=== PATIENT | female | born 1960 | race Caucasian/White ===

== ENCOUNTER 2019-12-29 10:03 | Outpatient (CLI) | payer OTHER, SELFPAY ==
--- NOTE | ~2019-12-29 | US_ITS ---
EXAMINATION: US thyroid DATE: 12/29/2019 10:39 INDICATION: Nontoxic goiter. TECHNIQUE: Multiple ultrasound images of the thyroid were obtained. COMPARISON: None. FINDINGS: The right thyroid lobe measures 6.7 x 3.1 x 3.4 cm. The left thyroid lobe measures 6.9 x 2.6 x 3.0 c m. There are numerous nodules in the thyroid. In the left thyroid lobe, there is a 1.6 cm predominan tly solid, isoechoic, ffypm-hzap-cdby nodule with ill-defined margin without echogenic foci (TI-RADS TR3). In the left thyroid lobe, there is a 1.6 cm predominantly solid, isoechoic, gqvvt-jsoi-jfjr nod ule with ill-defined margin without echogenic foci (TR3). In the inferior thyroid isthmus, there is a 2.5 cm predominantly solid, hypoechoic, cmwof-lhbn-wtgk nodule with smooth margin without echogenic foci (TR4). IMPRESSION: 1. Multinodular goiter. Ultrasound-guided fine-needle aspiration of the 2.5 cm nodule in the inferior thyroid isthmus is recommended. Reviewed, dictated and finalized at location A.
== END 2019-12-29 10:04 | disposition home or self-care (01) ==
LOC: CHSIMG 10:05
PROVIDERS: PCP Family Medicine; Visit Provider Family Medicine
DX: E04.9 Nontoxic goiter, unspecified (principal)
CPT/HCPCS: 76536

== ENCOUNTER 2020-02-18 13:56 | Outpatient (CLI) | payer OTHER, SELFPAY ==
--- NOTE | ~2020-02-18 | US_ITS ---
EXAMINATION: US FNA w image guidance DATE: 02/18/2020 14:48 INDICATION: Thyroid nodule TECHNIQUE: A time-out was performed to verify the patient's name, date of , and procedure to be performed . The procedure and its benefits and risks were discussed with the patient. Risks specifically discus sed included bleeding and infection. The patient understood the risks and agreed to proceed. The neck was prepped and draped in the usual sterile manner. 3 mL 1% lidocaine was used for local anesthesia . 6 passes were made with a 25G needle into the lesion. Appropriate needle location was documented with continuous sonographic guidance. The specimens were passed to the blood bank technologist in the room. A sterile bandage was applied. There were no immediate complications. FINDINGS: Grayscale ultrasound images demonstrate biopsy needles advanced into a 2.1 x 1.7 x 1.7 cm TI RADS 4 n odule at the thyroid isthmus. IMPRESSION: 1. Successful ultrasound-guided fine needle aspiration of the 2.1 cm TI RADS 4 nodule at the isthmus . Reviewed, dictated and finalized at location A. IMPRESSION: 1. Successful ultrasound-guided fine needle aspiration of the 2.1 cm TI RADS 4 nodule at the isthmus.
== END 2020-02-18 13:57 | disposition home or self-care (01) ==
PROVIDERS: PCP Family Medicine; Visit Provider Otolaryngology
DX: E04.1 Nontoxic single thyroid nodule (principal)
CPT/HCPCS: 10005; 88173; 88305

== ENCOUNTER 2022-02-07 23:11 | Emergency (ER) | payer OTHER, SELFPAY ==
--- NOTE | 2022-02-07 23:12 | ED.GENADULT ---
HPI - General Adult General Chief complaint: Unspecified Stated complaint: blood presser Time Seen by Provider: 02/07/22 23:12 Source: patient and RN notes reviewed Mode of arrival: ambulatory Limitations: no limitations History of Present Illness HPI narrative: Patient states she has had some elevated blood pressures in the past with systolics being 150s. She states her primary care physician has been monitoring her blood pressure but she has not started on anything. Tonight she felt like she had some palpitations and then checked her blood pressure and it was 189/68. She denies any other symptoms. She denies any chest pain shortness of breath, nausea vomiting, dyspnea on exertion. She denies any headache or blurry vision. Onset (ago): hour(s) (6) Severity: moderate Relieving factors: none Exacerbating factors: none Associated symptoms: denies other symptoms Related Data Allergies Allergy/AdvReac Type Severity Reaction Status Date / Time No Known Allergies Allergy Verified 02/07/22 23:27 Review of Systems Review of Systems: All systems reviewed & are unremarkable except as noted in HPI and below PMFSH Past Medical History Medical History (Updated 02/08/22 @ 00:07 by Jeff Aguero MD) Multinodular goiter (nontoxic) Surgical History Surgical History (Updated 02/07/22 @ 23:20 by Jeff Aguero MD) No pertinent past surgical history Social History Social History (Updated 02/07/22 @ 23:19 by Jeff Aguero MD) Smoking packs per day: 0.5 Smoking cigarettes per day: 10.0 Smoking status: Current every day smoker Tobacco type: cigarettes Alcohol intake: current Drinks per week: 7 Substance use: never Gender identity (if verbalized by the patient): Female Exam Const: General: healthy appearing, no acute distress and alert Nutritional Appearance: well nourished Orientation/consciousness: patient oriented x3 Limitations: no limitations HENMT: Head: normal to inspection Ears: external ears normal Face and sinus: normal facial exam Mouth: Yes moist mucous membranes Eyes: Conjunctivae: conjunctivae normal Pupils: Equal, round and reactive pupils present EOM: EOMs intact bilaterally Neck: Neck: normal visual inspection Resp: Effort & Inspection: normal respiratory effort Auscultation: clear to auscultation bilaterally Cardio: Rate: tachycardic Rhythm: regular rhythm GI: GI Palp: Yes Soft to palpation and No Tenderness to palpation present (GI) Auscultation: normal bowel sounds Back/Spine/Pelvis: Cervical Spine: cervical ROM normal Thoracic/Lumbar Spine: thoraco-lumbar ROM normal Skin: General skin exam: normal color Rashes: no rashes Neuro: General: patient oriented x3, moves all extremities, no focal motor deficits and CN's II-XI intact bilaterally Speech: normal speech Gait exam (Neuro): Normal gait present Extrem: General: normal to inspection and no clubbing, cyanosis or edema Psych: Mental Status: mental status grossly normal Affect: normal affect Attitude: cooperative Course Course Emergency Course: After 0.2 mg of clonidine blood pressure came down to 156/63. Going to start patient on some amlodipine for her systolic hypertension. Vital Signs Vital signs: Vital Signs Temperature 36.6 C 02/07/22 23:15 Pulse Rate 105 H 02/07/22 23:15 Respiratory Rate 18 02/07/22 23:15 Blood Pressure 197/73 H 02/07/22 23:15 Pulse Oximetry 100 02/07/22 23:15 Oxygen Delivery Room Air 02/07/22 23:15 Temperature 36.6 C 02/07/22 23:15 Pulse Rate 83 02/08/22 00:04 Respiratory Rate 18 02/08/22 00:03 Blood Pressure 156/63 H 02/08/22 00:04 Pulse Oximetry 99 02/08/22 00:03 Oxygen Delivery Room Air 02/08/22 00:03 Medical Decision Making Vital Signs Vital Signs: Vital Signs Temperature 36.6 C 02/07/22 23:15 Pulse Rate 105 H 02/07/22 23:15 Respiratory Rate 18 02/07/22 23:15 Blood Pressure 197/73 H 02/07/22 23:15 Pulse Oxi
[2022-02-07 23:15] VITALS: BP 197/73; PULSE 105; RESP 18; TEMP 36.6; O2SAT 100
[2022-02-07] MEDS: cloNIDine HCL 0.2 MG TABLET PO (23:21)
[2022-02-07 23:46] VITALS: BP 167/61; PULSE 86; RESP 16; O2SAT 97
[2022-02-08 00:03] VITALS: BP 156/63; PULSE 83; RESP 18; O2SAT 99
[2022-02-08 00:04] VITALS: BP 156/63; PULSE 83
== END 2022-02-08 00:15 | disposition home or self-care (01) ==
PROVIDERS: Emergency Provider Emergency Medicine; PCP Family Medicine
DX: I10 Essential (primary) hypertension (principal); F17.200 Nicotine dependence, unspecified, uncomplicated
CPT/HCPCS: 99283; A9270

== ENCOUNTER 2022-02-13 08:44 | Outpatient (CLI) | payer OTHER, SELFPAY ==
[2022-02-13 08:58] LABS: Basophils Absolute Auto 0.03 K/mm3 (0.00-0.10); Basophils Percent Auto 0.4 % (0.0-1.0); Eosinophils Absolute Auto 0.28 K/mm3 (0.02-0.50); Eosinophils Percent Auto 3.9 % (1.0-6.0); Hemoglobin 15.7 g/dL (12.0-15.0); Immature Granulocyte Absolute 0.02 K/mm3 (0.00-0.00); Immature Granulocyte Percent A 0.3 % (0.0-0.0); Lymphocytes Absolute Auto 2.66 K/mm3 (1.10-4.50); Lymphocytes Percent Auto 37.3 % (18.0-42.0); Mean Corpuscular HGB Conc 33.4 g/dL (32.0-36.0); Mean Corpuscular Hemoglobin 32.6 pg (27.0-31.0); Mean Corpuscular Volume 97.7 fL (78.0-102.0); Monocytes Absolute Auto 0.55 K/mm3 (0.10-0.90); Monocytes Percent Auto 7.7 % (2.0-11.0); Neutrophils Absolute Auto 3.6 K/mm3 (1.7-7.2); Neutrophils Percent Auto 50.4 % (50.0-70.0); Platelet Count Result 311 K/mm3 (150-420); Red Blood Count 4.81 M/mm3 (4.20-5.40); Red Cell Distribution Width 13.5 % (11.6-14.4); White Blood Count 7.1 K/mm3 (4.8-10.8)
[2022-02-13 09:09] LABS: Add Urine Microscopic? NO; Appearance Urine Clear (Clear); Bilirubin Urine Negative (Negative); Blood Urine Negative (Negative); Color Urine Light Yellow (Yellow); Glucose Urine UA Negative (Negative); Ketones Urine Negative (Negative); Leukocyte Esterase Ur Negative (Negative); Nitrate Urine Negative (Negative); Protein Urine Negative (Negative); Specific Grav Ur <= 1.005 (1.010-1.020); Urobilinogen Urine 0.2 mg/dL (0.2-1.0); pH Urine 6.5 (5.0-8.0)
[2022-02-13 09:12] LABS: Creatinine Urine < 13.00 mg/dL (40-278); Microalbumin Urine Random < 13.0 mg/L
[2022-02-13 10:06] LABS: Alanine Aminotransferase 19 U/L (14-59); Albumin Level 4.4 g/dL (3.4-5.0); Alkaline Phosphatase 126 U/L (46-116); Anion Gap 7 mmol/L (8-16); Aspartate Amino Transferase 18 U/L (15-37); Bilirubin,Total 0.5 mg/dL (0.00-1.00); Blood Urea Nitrogen 9 mg/dL (7-18); Calcium 8.7 mg/dL (8.5-10.1); Carbon Dioxide 31 mmol/L (21-32); Chloride 102 mmol/L (98-108); Cholesterol 284 mg/dL (0-200); Estimated Glomerular Filt Rate > 60; Free T4 Free Thyroxine 0.73 ng/dL (0.76-1.46); Glucose 97 mg/dL (70-99); HDL Direct 83 mg/dL (40-60); LDL Cholesterol Calculated 175 mg/dL (<130); Osmolality Calculated 288 mOsm/kg (285-295); Potassium 4.5 mmol/L (3.5-5.1); Sodium 140 mmol/L (136-145); Thyroid Stimulating Hormone 0.16 uIU/mL (0.36-3.74); Total Protein 7.7 g/dL (6.4-8.2); Triglycerides 128 mg/dL (0-150)
== END 2022-02-13 08:45 | disposition home or self-care (01) ==
LOC: CHSLAB 08:47
PROVIDERS: PCP Family Medicine; Visit Provider Family Medicine
DX: R94.6 Abnormal results of thyroid function studies (principal); I10 Essential (primary) hypertension
CPT/HCPCS: 36415; 80053; 80061; 81003; 82043; 84436; 84439; 84443; 84480; 85025

== ENCOUNTER 2022-07-27 13:24 | Emergency (ER) | payer OTHER, SELFPAY ==
--- NOTE | ~2022-07-27 | XR_ITS ---
EXAMINATION: XR chest 1V portable DATE: 07/27/2022 16:14 INDICATION: Dyspnea and cough TECHNIQUE: frontal view of the chest was obtained. COMPARISON: Chest radiograph dated 10/28/2017 FINDINGS: Mild increased perihilar interstitial pattern with mild bronchial wall thickening. No focal airspace opacities, pleural effusion or pneumothorax. The cardiomediastinal silhouette is normal. IMPRESSION: 1. Mild increased perihilar interstitial pattern with mild bronchial wall thickening without focal ai rspace disease. Differential would include bronchitis, reactive airway disease/asthma or mild pulmona ry edema. Reviewed, dictated and finalized at location A. SPECIALIST IMPRESSION: 1. Mild increased perihilar interstitial pattern with mild bronchial wall thick ening without focal airspace disease. Differential would include bronchitis, re active airway disease/asthma or mild pulmonary edema.
[2022-07-27 15:19] VITALS: BP 164/74
--- NOTE | 2022-07-27 15:26 | ED.GENADULT ---
HPI - General Adult General Chief complaint: Upper Respiratory Infection Stated complaint: SOB CONGESTED HEART RACING History of Present Illness HPI narrative: The patient is a 62-year-old woman with history of hypertension and goiter. She takes amlodipine 10 mg daily. She is a smoker. She is vaccinated against COVID-19 2 doses, no blister. For the last 2 weeks, the patient has had upper respiratory tract infection symptoms with a dry nonproductive cough, chest heaviness, intermittent dizziness, dyspnea, especially with exertion, and a sensation of her heart racing. She does have watery diarrhea, proximally 3 episodes today, 4 yesterday. No nausea or vomiting. The chest heaviness is with coughing. Does have nasal and chest congestion as well as rhinorrhea. No sore throat. No abdominal pain. No other complaints. Related Data Allergies Allergy/AdvReac Type Severity Reaction Status Date / Time No Known Allergies Allergy Verified 02/07/22 23:27 Review of Systems Review of Systems: All systems reviewed & are unremarkable except as noted in HPI and below Constitutional: Constitutional: Reports no additional constitutional complaints, Denies anorexia, Denies body ache(s), Denies chills, Denies excessive sweating, Denies fatigue, Denies fever(s), Denies frequent falls, Denies headache(s), Denies malaise and Denies poor appetite Eyes: Eyes: Reports no additional eye complaints, Denies blurry vision, Denies change in vision, Denies irritation, Denies itchy eyes and Denies photophobia ENT: Reports system reviewed and no additional complaints, except as documented, Reports Normal hearing present, Denies change in voice, Denies dysphagia, Denies vertigo, Denies dizziness, Denies ear discharge, Denies headache(s), Denies hearing loss, Denies hoarseness, Reports nasal congestion, Denies neck pain, Denies sinus pressure, Denies sore throat and Denies throat swelling Cardiovascular: Cardiovascular: Reports no additional cardiovascular complaints, Denies chest pain, Denies syncope, Reports rapid heart rate, Denies irregular heart rhythm, Denies leg edema, Denies dyspnea and Denies slow heart rate Respiratory: Respiratory: Reports no additional respiratory complaints, Reports chest congestion, Reports cough, Reports dyspnea, Denies stridor and Denies wheezing Gastrointestinal: Gastrointestinal: Reports no additional gastrointestinal complaints, Denies abdominal pain, Denies melena, Denies hematochezia, Denies dysphagia, Reports diarrhea, Denies nausea and Denies vomiting Genitourinary: Genitourinary: Denies hematuria, Denies urinary frequency, Denies dysuria, Denies flank pain and Denies urinary urgency Musculoskeletal: Musculoskeletal: Reports no additional musculoskeletal complaints, Denies abnormal gait, Denies back pain, Denies myalgias, Denies arthralgias, Denies joint swelling, Denies limited range of motion, Denies muscle cramps, Denies muscle weakness, Denies neck pain and Denies numbness Integumentary/Breasts: Skin/Breast: Reports system reviewed and no additional complaints, except as docu, Denies breast pain, Denies change in pigmentation, Denies pruritus, Denies erythema and Denies wounds Neurologic: Reports system reviewed and no additional complaints, except as documented, Reports Normal hearing present, Denies Abnormal speech present, Denies abnormal gait, Denies confusion, Denies vertigo, Denies dizziness, Denies syncope, Denies frequent falls, Denies headache(s), Denies focal weakness, Denies numbness and Denies paresthesias Psychiatric: Psychiatric: Reports no additional psychiatric complaints and Denies confusion Endocrine: Endocrine: Reports no additional endocrine complaints, Denies cold intolerance, Denies excessive sweating, Denies fatigue and Denies heat intolerance Hematologic/Lymphatic: Hematologic/Lymphatic: Reports no additional hematologic/lymphatic complaints, Denies easy bleeding and Denies easy bruising Allergic/Immunolo
[2022-07-27 15:48] LABS: Influenza A QL RT-PCR Negative (Negative); Influenza B QL RT-PCR Negative (Negative); RSV RNA, RT-PCR Negative (Negative); SARS-CoV-2 RNA PCR Negative (Negative)
[2022-07-27 15:49] LABS: Basophils Absolute Auto 0.03 K/mm3 (0.00-0.10); Basophils Percent Auto 0.3 % (0.0-1.0); Eosinophils Absolute Auto 0.18 K/mm3 (0.02-0.50); Eosinophils Percent Auto 1.6 % (1.0-6.0); Hematocrit 40.6 % (35.0-49.0); Hemoglobin 14.1 g/dL (12.0-15.0); Immature Granulocyte Absolute 0.04 K/mm3 (0.00-0.00); Immature Granulocyte Percent A 0.4 % (0.0-0.0); Lymphocytes Absolute Auto 2.54 K/mm3 (1.10-4.50); Lymphocytes Percent Auto 22.2 % (18.0-42.0); Mean Corpuscular HGB Conc 34.7 g/dL (32.0-36.0); Mean Corpuscular Hemoglobin 32.9 pg (27.0-31.0); Mean Corpuscular Volume 94.6 fL (78.0-102.0); Monocytes Absolute Auto 1.09 K/mm3 (0.10-0.90); Monocytes Percent Auto 9.5 % (2.0-11.0); Neutrophils Absolute Auto 7.5 K/mm3 (1.7-7.2); Platelet Count Result 381 K/mm3 (150-420); Red Blood Count 4.29 M/mm3 (4.20-5.40); Red Cell Distribution Width 13.8 % (11.6-14.4); White Blood Count 11.4 K/mm3 (4.8-10.8)
--- NOTE | 2022-07-27 15:51 | ECG_ITS ---
Measurements Intervals [place] Rate: 84 P: 77 NV: 148 QRS: 59 QRSD: 81 T: 56 QT: 375 QTc: 445 Interpretive Statements SINUS RHYTHM WITH SINUS ARRHYTHMIA WITHIN NORMAL LIMITS NO PREVIOUS ECG AVAILABLE FOR COMPARISON Electronically Signed On 07-27-2022 17:33:33 PROFESSOR OF SPECIAL EDUCATION by Tadeo Solitario M.D.
[2022-07-27] MEDS: IBUPROFEN 400 MG TABLET 800 MG PO (15:52)
[2022-07-27] MEDS: ACETAMINOPHEN 500 MG TABLET 1000 MG PO (15:53)
[2022-07-27] MEDS: AZITHROMYCIN 250 MG TABLET 500 MG PO (15:53)
[2022-07-27] MEDS: IPRATROPIUM 0.5 MG/ALBUTEROL SULFATE 2.5 MG AMPUL.NEB 3 ML INHALATION (15:54)
[2022-07-27] MEDS: methylPREDNISolone SOD SUCC 125 MG VIAL IV PUSH (15:54)
[2022-07-27 15:55] VITALS: PULSE 92; RESP 12; O2SAT 97
[2022-07-27] MEDS: ceFAZolin 2 GM/D5W 50 ML 2 GM/50 ML BAG IVPB (15:59)
[2022-07-27 16:02] VITALS: PULSE 86; RESP 12
[2022-07-27 16:08] LABS: Lactic Acid Reflex 1.3 mmol/L (0.4-2.0)
[2022-07-27 16:12] LABS: D Dimer 0.75 mg/L (0.19-0.50)
[2022-07-27 16:17] LABS: Alanine Aminotransferase 18 U/L (14-59); Albumin Level 3.8 g/dL (3.4-5.0); Alkaline Phosphatase 142 U/L (46-116); Anion Gap 10 mmol/L (8-16); Aspartate Amino Transferase 17 U/L (15-37); Bilirubin,Total 0.2 mg/dL (0.00-1.00); Blood Urea Nitrogen 11 mg/dL (7-18); Calcium 9.2 mg/dL (8.5-10.1); Carbon Dioxide 27 mmol/L (21-32); Chloride 108 mmol/L (98-108); Estimated Glomerular Filt Rate > 60; Glucose 109 mg/dL (70-99); NT Pro B Type Natriuretic Pept 93 pg/mL (0-125); Osmolality Calculated 300 mOsm/kg (285-295); Potassium 4.5 mmol/L (3.5-5.1); Sodium 145 mmol/L (136-145); Total Protein 7.6 g/dL (6.4-8.2)
[2022-07-27 16:19] LABS: Magnesium 2.1 mg/dL (1.8-2.4); Troponin I 9.4 ng/L (0.00-60.4)
[2022-07-27 16:21] LABS: Strep Group A RT-PCR NOT DETECTED (Negative)
[2022-07-27 16:58] LABS: Erythrocyte Sedimentation Rate 38 mm/hr (0-20)
[2022-07-27 17:01] VITALS: BP 147/57; PULSE 70; RESP 20; TEMP 36.9; O2SAT 97
[2022-07-27] MEDS: KETOROLAC 30 MG/ML VIAL (*BKC) IV PUSH (17:09)
[2022-07-27 17:11] VITALS: BP 147/57; PULSE 70; RESP 20; TEMP 36.9; O2SAT 97
== END 2022-07-27 17:18 | disposition home or self-care (01) ==
PROVIDERS: Emergency Provider Emergency Medicine; PCP Family Medicine
DX: J20.9 Acute bronchitis, unspecified (principal); R07.9 Chest pain, unspecified; I16.0 Hypertensive urgency; Z20.822 Contact with and (suspected) exposure to COVID-19
CPT/HCPCS: 36415; 71045; 80053; 83605; 83735; 83880; 84484; 85025; 85380; 85652; 86140; 87637; 87651; 93005; 94640; 96365; 96375; 99284; A9270; J0690; J1885; J2930

== ENCOUNTER 2023-09-22 15:19 | Emergency (ER) | payer SELFPAY ==
[2023-09-22] VITALS (16 sets, daily range): BP systolic 121–166; BP diastolic 50–68; PULSE 77–100; RESP 16–25; TEMP 36.8; O2SAT 96–100
--- NOTE | ~2023-09-22 | XR_ITS ---
EXAMINATION: XR chest 1V portable Exam Date/Time: 09/22/2023 15:36 INSURANCE COORDINATOR HISTORY: Chest tightness, sob, congested x few weeks on and off Comparison: 07/27/2022. RESULT: Lines, tubes, and devices: None. Lungs and pleura: Clear. Cardiomediastinal silhouette: Stable. Other: No acute osseous or upper abdominal finding. IMPRESSION: No acute cardiopulmonary process. Reviewed, dictated and finalized at location K. RANCE COORDINATOR
--- NOTE | 2023-09-22 15:21 | ED.URI ---
HPI - URI/Sore Throat General Chief Complaint: Upper Respiratory Infection Stated Complaint: congestion Time Seen by Provider: 09/22/23 15:20 Source: patient Mode of arrival: ambulatory Limitations: no limitations History of Present Illness HPI Narrative: Patient is a 63-year-old female with some chest pressure and shortness of breath for the past 2 weeks. She has been getting worse over the past 24 hours and came to the emergency room at this time. Patient smokes a half pack cigarettes per day. MD elicited complaint: cough, rhinorrhea and nasal congestion Onset (ago): week(s) (2) Consistency: constant Severity: moderate Pain scale (0-10): 4 Description of mucous: clear Able to tolerate fluids by mouth: Yes Exacerbating factors: nothing Relieving factors: nothing Associated symptoms: myalgias and chest pain Treatments prior to arrival: none Related Data Allergies Allergy/AdvReac Type Severity Reaction Status Date / Time No Known Allergies Allergy Verified 09/22/23 15:20 Review of Systems Review of Systems: All systems reviewed & are unremarkable except as noted in HPI and below Constitutional: Constitutional: Reports no additional constitutional complaints Eyes: Eyes: Reports no additional eye complaints ENT: Reports system reviewed and no additional complaints, except as documented Cardiovascular: Cardiovascular: Reports no additional cardiovascular complaints Respiratory: Respiratory: Reports no additional respiratory complaints Gastrointestinal: Gastrointestinal: Reports no additional gastrointestinal complaints Genitourinary: Genitourinary: Reports no additional female genitourinary complaints Musculoskeletal: Musculoskeletal: Reports no additional musculoskeletal complaints Integumentary/Breasts: Skin/Breast: Reports system reviewed and no additional complaints, except as docu Neurologic: Reports system reviewed and no additional complaints, except as documented Psychiatric: Psychiatric: Reports no additional psychiatric complaints Endocrine: Endocrine: Reports no additional endocrine complaints Hematologic/Lymphatic: Hematologic/Lymphatic: Reports no additional hematologic/lymphatic complaints Allergic/Immunologic: Allergic/Immunologic: Reports no additional allergic/immunologic complaints PMFSH Past Medical History Medical History Multinodular goiter (nontoxic) Surgical History Surgical History No pertinent past surgical history Social History Social History Smoking packs per day: 0.5 Smoking cigarettes per day: 10.0 Smoking status: Current every day smoker Tobacco type: cigarettes Alcohol intake: current Drinks per week: 7 Substance use: never Gender identity (if verbalized by the patient): Female Exam Const: General: ill appearing Nutritional Appearance: well nourished Orientation/consciousness: patient oriented x3 HENMT: Head: normal to inspection Ears: external ears normal Face/Nose/Sinus: Normal external nose present Eyes: Conjunctivae: conjunctivae normal Pupils: Equal, round and reactive pupils present EOM: EOMs intact bilaterally Neck: Neck: normal visual inspection Chest: Chest palpation & inspection: normal inspection of the chest Resp: Effort & Inspection: normal respiratory effort and not labored Auscultation: not clear to auscultation bilaterally, no crackles, no rales, rhonchi lower bilaterally, no wheezes, breath sounds present and lung sounds not diminished Cardio: Rate: regular rate Rhythm: regular rhythm Heart sounds: no murmurs GI: Inspection: non-distended GI Palp: Yes Soft to palpation and No Tenderness to palpation present (GI) Auscultation: normal bowel sounds : General: Yes bladder normal to palpation Back/Spine/Pelvis: Back: no CVA tenderness Skin: General sk
--- NOTE | 2023-09-22 15:30 | ECG_ITS ---
Measurements Intervals [place] Rate: 84 P: 32 CO: 151 QRS: 33 QRSD: 81 T: 31 QT: 365 QTc: 434 Interpretive Statements REDUCED ECG QUALITY BECAUSE OF MOTION ARTIFACT SINUS RHYTHM WITHIN NORMAL LIMITS COMPARED TO ECG 07/27/2022 15:51:02 NO SIGNIFICANT CHANGES Electronically Signed On 09-23-2023 7:48:17 CASK MAKER by Tadeo Solitario M.D.
[2023-09-22 15:39] LABS: Basophils Absolute Auto 0.02 K/mm3 (0.00-0.10); Basophils Percent Auto 0.2 % (0.0-1.0); Eosinophils Percent Auto 0.9 % (1.0-6.0); Hemoglobin 14.2 g/dL (12.0-15.0); Immature Granulocyte Absolute 0.03 K/mm3 (0.00-0.00); Immature Granulocyte Percent A 0.3 % (0.0-0.0); Lymphocytes Absolute Auto 3.04 K/mm3 (1.10-4.50); Lymphocytes Percent Auto 28.7 % (18.0-42.0); Mean Corpuscular Hemoglobin 31.4 pg (27.0-31.0); Mean Corpuscular Volume 95.1 fL (78.0-102.0); Mean Platelet Volume 9.8 fl (9.2-11.8); Monocytes Absolute Auto 1.03 K/mm3 (0.10-0.90); Monocytes Percent Auto 9.7 % (2.0-11.0); Neutrophils Absolute Auto 6.4 K/mm3 (1.7-7.2); Neutrophils Percent Auto 60.2 % (50.0-70.0); Platelet Count Result 344 K/mm3 (150-420); Red Blood Count 4.52 M/mm3 (4.20-5.40); Red Cell Distribution Width 14.4 % (11.6-14.4); White Blood Count 10.6 K/mm3 (4.8-10.8)
[2023-09-22] MEDS: methylPREDNISolone SOD SUCC 125 MG VIAL IM (15:43)
[2023-09-22 16:01] LABS: Alanine Aminotransferase 22 U/L (14-59); Albumin Level 3.8 g/dL (3.4-5.0); Alkaline Phosphatase 134 U/L (46-116); Anion Gap 12 mmol/L (8-16); Aspartate Amino Transferase 15 U/L (15-37); Bilirubin,Total 0.3 mg/dL (0.00-1.00); Blood Urea Nitrogen 9 mg/dL (7-18); Carbon Dioxide 27 mmol/L (21-32); Chloride 103 mmol/L (98-108); Estimated Glomerular Filt Rate > 60; Glucose 155 mg/dL (70-99); NT Pro B Type Natriuretic Pept 80 pg/mL (0-125); Osmolality Calculated 295 mOsm/kg (285-295); Potassium 3.1 mmol/L (3.5-5.1); Sodium 142 mmol/L (136-145); Total Protein 7.4 g/dL (6.4-8.2)
[2023-09-22 16:16] LABS: SARS-CoV-2 RNA PCR Negative (Negative)
[2023-09-22 16:17] LABS: Influenza A QL RT-PCR Negative (Negative); Influenza B QL RT-PCR Negative (Negative); RSV RNA, RT-PCR Negative (Negative)
[2023-09-22] MEDS: IPRATROPIUM 0.5 MG/ALBUTEROL SULFATE 2.5 MG AMPUL.NEB 3 ML INHALATION (16:29)
[2023-09-22] MEDS: AMOXICILLIN/CLAVULANATE K 875-125 MG TAB 1 TABLET PO (16:54)
[2023-09-22] MEDS: POTASSIUM CHLORIDE 20 MEQ ER TABLET 40 MEQ PO (16:54)
--- NOTE | 2023-09-22 17:00 | PC.NURSE ---
On 09/22/23, the student, Marta Bolanos, provided care and completed [facility] documentation on this patient. I have reviewed the student's documentation and agree with the findings.
== END 2023-09-22 17:05 | disposition home or self-care (01) ==
PROVIDERS: Emergency Provider Emergency Medicine; PCP Family Medicine
DX: J44.1 Chronic obstructive pulmonary disease with (acute) exacerbation (principal); F17.210 Nicotine dependence, cigarettes, uncomplicated; Z20.822 Contact with and (suspected) exposure to COVID-19
CPT/HCPCS: 36415; 71045; 80053; 83880; 84484; 85025; 87637; 93005; 96372; 99284; A9270; J2930